=== PATIENT | male | born 1975 | race Caucasian/White ===

== ENCOUNTER 2023-10-10 12:07 | Day surgery (SDC) | payer OTHER ==
[2023-10-10] VITALS (13 sets, daily range): BP systolic 123–169; BP diastolic 83–108; PULSE 63–68; RESP 12–68; TEMP 98; O2SAT 94–98
[~2023-10-10] VITALS: Ht 185.4 cm; Wt 93.6 kg
[2023-10-10 13:00] LABS: BASOPHILS # (AUTO) 0.1 X10'3 (0-0.2); EOSINOPHILS # (AUTO) 0.1 X10'3 (0-0.9); EOSINOPHILS % (AUTO) 1.4 % (0-6); HEMATOCRIT 44.7 % (42.0-52.0); HEMOGLOBIN 15.6 g/dl (14.0-17.9); LYMPHOCYTES # (AUTO) 2.9 X10'3 (1.1-4.8); LYMPHOCYTES % (AUTO) 38.8 % (21-51); MEAN CORPUSCULAR HEMOGLOBIN 31.2 PG (27.0-31.0); MEAN CORPUSCULAR HGB CONC 34.9 g/dL (33.0-36.5); MEAN CORPUSCULAR VOLUME 89.3 FL (78-98); MEAN PLATELET VOLUME 7.7 FL (7.4-10.4); MONOCYTES # (AUTO) 0.3 X10'3 (0-0.9); MONOCYTES % (AUTO) 4.7 % (2-12); NEUTROPHILS % (AUTO) 54.1 % (42-75); PLATELET COUNT 262 X10'3 (140-440); RED CELL DISTRIBUTION WIDTH 13.1 % (11.5-14.5); WHITE BLOOD COUNT 7.4 X10'3 (4.5-11.0)
[2023-10-10] MEDS ORDERED: METO-411 PO (13:04)
[2023-10-10] MEDS ORDERED: NITR0.4T51 SL (13:04)
[2023-10-10] MEDS ORDERED: PER5325T PO (13:04)
[2023-10-10] MEDS ORDERED: CYCL-1 PO (13:04)
[2023-10-10] MEDS: LORazepam 0.5 MG tablet PO PRN (13:09)
[2023-10-10] MEDS: diphenhydrAMINE 25mg capsule PO PRN (13:09)
[2023-10-10] MEDS: normal saline 1,000 ML IV SCH (13:10)
[2023-10-10 13:18] LABS: APTT 28 SECONDS (22-32); PROTHROMBIN TIME 10.9 SECONDS (9.0-12.0)
[2023-10-10] MEDS ORDERED: midazolam 1 mg/ML 2ml injection ONE ×3 (13:18→14:33)
[2023-10-10] MEDS ORDERED: verapamil 2.5 mg/ml inj IV ONE (13:18)
[2023-10-10] MEDS ORDERED: LIDOcaine 1% (10mg/ml) 2ml vial ONE (13:18)
[2023-10-10 13:19] LABS: ALBUMIN 4.5 G/DL (3.4-5.0); ANION GAP 12 (8-16); BLOOD UREA NITROGEN 18 MG/DL (7-18); BUN/CREATININE RATIO 14.9 (10.0-20.0); CALCIUM 9.6 MG/DL (8.5-10.1); CHLORIDE 106 MMOL/L (99-107); CHOL/HDL RATIO 3.3 (0.00-4.99); CHOLESTEROL 192 MG/DL (0-200); CREATININE 1.21 MG/DL (0.60-1.10); GLUCOSE 110 MG/DL (70-104); HDL CHOLESTEROL 58 MG/DL (35-60); LDL CHOLESTEROL 110 MG/DL (50-100); POTASSIUM 4.2 MMOL/L (3.5-5.1); SODIUM 143 MMOL/L (135-145); TOTAL CARBON DIOXIDE 24.7 MMOL/L (24-32); TRIGLYCERIDES 113 MG/DL (20-135); eCRCL 86 ML/MIN; eGFR 65 ML/MIN
[2023-10-10] MEDS ORDERED: fentaNYL/PF 50MCG/1 ML 2ML syringe ONE ×2 (13:19→14:33)
[2023-10-10] MEDS ORDERED: iohexol 350MG/ML 100ml bottle IV ONE ×2 (13:19→14:06)
[2023-10-10] MEDS ORDERED: heparin 1,000unit/ml 10ml vial 10 ML ONE (13:19)
[2023-10-10] MEDS ORDERED: nitroGLYCERIN 500mcg/5mL D5W 5 ML IV ONE (13:24)
[2023-10-10] MEDS ORDERED: iohexol 350 MG/ML 50ML vial IV ONE (14:04)
[2023-10-10] MEDS ORDERED: nitroGLYCERIN 0.4mg SUBLingual tab SL ONE (14:28)
[2023-10-10] MEDS ORDERED: aspirin 325mg tablet ONE (14:37)
[2023-10-10] MEDS ORDERED: ticagrelor 90mg tablet ONE (14:37)
[2023-10-10] MEDS ORDERED: OXAZEpam 15mg capsule PO PRN (15:25)
[2023-10-10] MEDS ORDERED: nitroGLYCERIN 0.4mg SUBLingual tab SL PRN (15:25)
[2023-10-10] MEDS ORDERED: proCHLORperazine 10 MG/2 ml inj IV PRN (15:25)
[2023-10-10] MEDS ORDERED: ondansetron/PF 4mg/2ml inj IV PRN (15:25)
[2023-10-10] MEDS ORDERED: ticagrelor 90mg tablet PO SCH ×2 (20:00)
== END 2023-10-10 18:00 | disposition home or self-care (01) ==
LOC: SSTAY O 12:07
PROVIDERS: ATTEND Student in an Organized Health Care Education/Training Program
DX: I25.110 Atherosclerotic heart disease of native coronary artery with unstable angina pectoris (principal); K21.9 Gastro-esophageal reflux disease without esophagitis; G40.909 Epilepsy, unspecified, not intractable, without status epilepticus; F43.10 Post-traumatic stress disorder, unspecified; Z85.820 Personal history of malignant melanoma of skin; Z88.1 Allergy status to other antibiotic agents; Z88.8 Allergy status to other drugs, medicaments and biological substances; Z79.899 Other long term (current) drug therapy; Z79.01 Long term (current) use of anticoagulants
CPT/HCPCS: 36415; 80048; 80061; 85025; 85610; 85730; 93005; 93458; 99152; 99153; A6258; C1874; C9600; J1644; J2250; J3010; J3490; J7030; Q0163; Q9967; A6402; C1725; C1751; C1769; C1894

== ENCOUNTER 2023-10-23 20:28 | Emergency (ER) | payer OTHER ==
[~2023-10-23] VITALS: Ht 182.9 cm; Wt 95.0 kg
[~2023-10-23 20:28] MED LIST: CYCL-1 PO; METO-411 PO; NITR0.4T51 SL; PER5325T PO
[2023-10-23 21:04] LABS: BASOPHILS # (AUTO) 0.1 X10'3 (0-0.2); BASOPHILS % (AUTO) 0.8 % (0-1); EOSINOPHILS # (AUTO) 0.2 X10'3 (0-0.9); EOSINOPHILS % (AUTO) 1.7 % (0-6); HEMATOCRIT 43.3 % (42.0-52.0); LYMPHOCYTES # (AUTO) 3.9 X10'3 (1.1-4.8); LYMPHOCYTES % (AUTO) 40.3 % (21-51); MEAN CORPUSCULAR HEMOGLOBIN 30.9 PG (27.0-31.0); MEAN CORPUSCULAR HGB CONC 34.7 g/dL (33.0-36.5); MEAN CORPUSCULAR VOLUME 89.3 FL (78-98); MEAN PLATELET VOLUME 7.7 FL (7.4-10.4); MONOCYTES # (AUTO) 0.5 X10'3 (0-0.9); MONOCYTES % (AUTO) 5.3 % (2-12); NEUTROPHILS # (AUTO) 5.1 X10'3 (1.8-7.7); NEUTROPHILS % (AUTO) 51.9 % (42-75); PLATELET COUNT 278 X10'3 (140-440); RED BLOOD COUNT 4.85 X10'6 (4.70-6.10); RED CELL DISTRIBUTION WIDTH 13.4 % (11.5-14.5); WHITE BLOOD COUNT 9.8 X10'3 (4.5-11.0)
[2023-10-23 21:12] LABS: ALANINE AMINOTRANSFERASE 55 U/L (12-78); ALBUMIN 4.6 G/DL (3.4-5.0); ALBUMIN/GLOBULIN RATIO 1.3 (1.1-1.5); ALKALINE PHOSPHATASE 66 IU/L (46-116); ANION GAP 8 (8-16); ASPARTATE AMINO TRANSFERASE 24 U/L (10-37); BILIRUBIN,TOTAL 0.6 MG/DL (0.1-1.0); BLOOD UREA NITROGEN 19 MG/DL (7-18); BUN/CREATININE RATIO 14.8 (10.0-20.0); CALCIUM 9.5 MG/DL (8.5-10.1); CHLORIDE 107 MMOL/L (99-107); CREATININE 1.28 MG/DL (0.60-1.10); GLUCOSE 133 MG/DL (70-104); POTASSIUM 3.6 MMOL/L (3.5-5.1); SODIUM 145 MMOL/L (135-145); TOTAL CARBON DIOXIDE 29.6 MMOL/L (24-32); TOTAL PROTEIN 8.1 G/DL (6.4-8.2); eGFR 61 ML/MIN
[2023-10-23 21:19] LABS: PRO BRAIN NATRIURETIC PEPTIDE < 30 PG/ML (0-125)
[2023-10-23 22:22] VITALS: BP 148/97; PULSE 56; RESP 18; TEMP 98.2; O2SAT 98
== END 2023-10-24 04:02 | disposition left against medical advice (07) ==
LOC: ER 20:29
DX: R07.89 Other chest pain (principal); R00.2 Palpitations; Z53.21 Procedure and treatment not carried out due to patient leaving prior to being seen by health care provider
CPT/HCPCS: 36415; 71045; 80053; 83880; 84484; 85025; 93005; 99281